=== PATIENT | male | born 1955 ===

== ENCOUNTER 2023-02-10 22:57 | Emergency (ER) | payer BC, OTHER ==
[2023-02-10] MEDS ORDERED: ONDANSETRON 4 MG/2 ML VIAL IVPB ONE (23:01)
[2023-02-10] MEDS ORDERED: SODIUM CHLORIDE 1,000 ML IV ONE ×2 (23:01→23:07)
[2023-02-10] MEDS ORDERED: PANTOPRAZOLE SODIUM 40 MG VIAL IVPUSH ONE (23:07)
[2023-02-10 23:23] LABS: HEMATOCRIT 47.9 % (35.4-49); HEMOGLOBIN 15.9 G/dL (11.7-16.9); MCH 29.2 pg (25.7-33.7); MCHC 33.2 g/dl (32.0-35.9); MEAN CELL VOLUME 87.8 fl (80-96); PLATELET COUNT 169.7 10^3/uL (134-434); RBC 5.46 10^6/uL (4.00-5.60); RDW 14.3 % (11.9-15.9); WHITE BLOOD COUNT 11.5 10^3/uL (4.0-10.8)
[2023-02-10 23:31] LABS: INR 1.25 (0.83-1.09); PROTHROMBIN TIME (PATIENT) 14.5 SEC (9.7-13.0)
[2023-02-10 23:32] VITALS: RESP 18; BMI 23.6
[2023-02-10 23:42] LABS: ALBUMIN 4.7 g/dl (3.4-5.0); BILIRUBIN,TOTAL 0.6 mg/dl (0.2-1); BLOOD UREA NITROGEN 15.8 mg/dl (7-18); CALCIUM 9.6 mg/dl (8.5-10.1); POTASSIUM 4.5 mmol/L (3.5-5.1); SGOT/AST 18.4 U/L (15-37); SGPT/ALT 24.3 U/L (7-52); TOT PROT 7.1 g/dl (6.4-8.2)
[2023-02-11 01:25] VITALS: BP 96/55; PULSE 85; TEMP 97.9
[2023-02-11 02:05] LABS: HEMATOCRIT 42.2 % (35.4-49); HEMOGLOBIN 13.3 GM/dL (11.7-16.9); MCH 27.4 pg (25.7-33.7); MCHC 31.5 g/dl (32.0-35.9); MEAN PLT VOLUME 10.3 fl (7.5-11.1); PLATELET COUNT 179 10^3/uL (134-434); RBC 4.84 M/mm3 (4.00-5.60); RDW 13.4 % (11.9-15.9)
== END 2023-02-11 02:12 | disposition home or self-care (01) ==
LOC: FER 22:57
PROC: 3E033GC Introduction of Other Therapeutic Substance into Peripheral Vein, Percutaneous Approach (ICD-10-PCS; principal; 2023-02-10)
PROC: 3E033GC Introduction of Other Therapeutic Substance into Peripheral Vein, Percutaneous Approach (ICD-10-PCS; 2023-02-10)
PROC: 3E0337Z Introduction of Electrolytic and Water Balance Substance into Peripheral Vein, Percutaneous Approach (ICD-10-PCS; 2023-02-11)
DX: K92.2 Gastrointestinal hemorrhage, unspecified (principal); K92.0 Hematemesis; R11.2 Nausea with vomiting, unspecified
CPT/HCPCS: 36415; 71045-TC-FY; 80053; 85027; 85610; 86850; 86900; 86901; 93005; 99285-25